=== PATIENT | male | born 1955 | race Two or more races ===

== ENCOUNTER 2023-07-09 09:35 | Inpatient (IN) | payer OTHER, MEDICAID ==
[2023-07-09] VITALS (15 sets, daily range): BP systolic 76–103; BP diastolic 17–57; PULSE 83–192; RESP 12–24; TEMP 98.2–99.7; O2SAT 96–100
[~2023-07-09] VITALS: Ht 175.3 cm; Wt 84.2 kg
[2023-07-09] MEDS ORDERED: SODIUM CHLORIDE 0.9% 1,000 ML IVB ONE ×2 (11:30)
[2023-07-09 12:07] LABS: Basophils # (auto) 0 10 ^3/uL (0-0.2); Basophils % (auto) 0.3 % (0.0-2.0); Eosinophils # (auto) 0 10 ^3/uL (0-0.8); Lymphocytes # (auto) 0.7 10 ^3/uL (0.4-5.4); Monocytes # (auto) 0.2 10 ^3/uL (0-1.3)
[2023-07-09 12:09] LABS: Eosinophils % (auto) 0.3 % (0.0-7.0); Mean Corpuscular Hemoglobin 29.3 pg (28.0-32.0); Mean Corpuscular Hgb Conc. 27.9 g/dL (32.0-36.0); Monocytes % (auto) 4.7 % (0.0-12.0); Neutrophils # (auto) 3.5 10 ^3/uL (1.6-8.6); Neutrophils % (auto) 78.7 % (37.0-80.0); Nucleated Red Blood Cells % 0.3 %; Red Blood Cells 1.14 10^6/uL (4.5-5.90); Red Cell Distribution Width 17.7 % (11.8-14.3); White Blood Cell 4.4 10^3/uL (4.4-10.8)
[2023-07-09 12:18] LABS: Hemoglobin 3.4 g/dL (13.5-17.5)
[2023-07-09 12:22] LABS: Alanine Aminotransferase 25 U/L (7-40); Albumin 1.9 g/dL (3.2-4.8); Alkaline Phosphatase 24 U/L (46-116); Aspartate Aminotransferase 49 U/L (13-40); BUN/Creatinine Ratio 15.5 (10.0-20.0); Blood Alcohol < 3.0 mg/dL (<10); Blood Urea Nitrogen 63 mg/dL (9-23); Chloride 122 mmol/L (98-107); INR 1.62 (0.9-1.15); Partial Thromboplastin Time 37.7 SEC (24.5-34.5); Potassium 3.2 mmol/L (3.5-5.1); Prothrombin Time 16.5 sec (9.3-11.8); Sodium 147 mmol/L (136-145)
[2023-07-09 12:23] LABS: Bilirubin, Total 0.3 mg/dL (0.2-1.0); Total Protein 2.6 g/dL (5.7-8.2)
[2023-07-09 12:33] LABS: Glucose 179 mg/dL (74-106)
[2023-07-09 12:48] LABS: Lactic Acid w/Reflex 7.3 mmol/L (0.4-2.0)
[2023-07-09 12:50] LABS: Carbon Dioxide < 10 mmol/L (20-30)
[2023-07-09 12:51] LABS: Calcium 4.4 mg/dL (8.5-10.1)
[2023-07-09] MEDS: TRANEXAMIC ACID 1,000 MG in SODIUM CHL 0.9% 100 ML IV ONE (12:53)
[2023-07-09 12:54] LABS: Lipase 26 U/L (12-53)
[2023-07-09 12:56] LABS: % Iron Saturation 32.1 % (20-55)
[2023-07-09] MEDS ORDERED: VANCOMYCIN PER PHARMACY 0 MG IV SCH ×2 (13:00→17:15)
[2023-07-09] MEDS: ALBUMIN 25% 50 ML IV ONE (13:00)
[2023-07-09] MEDS: ONDANSETRON HCL 4 MG/2 ML VIAL IV ONE (13:02)
[2023-07-09] MEDS: PANTOPRAZOLE 40 MG/10 ML VIAL INJ IV ONE (13:04)
[2023-07-09] MEDS: PANTOPRAZOLE 40mg/50ML NS AE 50 ML IV ONE (13:05)
[2023-07-09 13:06] LABS: Folate (Folic Acid) 20.87 ng/mL (>5.38)
[2023-07-09] MEDS ORDERED: ETOMIDATE (2MG/ML) 20ML VIAL IV ONE (13:15)
[2023-07-09 13:27] LABS: Base Excess -18.8 mmol/L (-2.0-2.0)
[2023-07-09] MEDS: ETOMIDATE (2MG/ML) 20ML VIAL IV ONE (13:37)
[2023-07-09] MEDS: SUCCINYLCHOLINE CHLORIDE 20 MG/ML 10ML VIAL IV ONE (13:37)
[2023-07-09] MEDS: fentaNYL Drip 2500mCg/250mlNS 250 ML IV SCH (13:40)
[2023-07-09] MEDS: fentaNYL CITRATE 100 MCG/2 ML VL IM ONE (13:44)
[2023-07-09] MEDS: fentaNYL CITRATE 100 MCG/2 ML VL IV ONE ×2 (13:44→13:45)
[2023-07-09] MEDS: ROCURONIUM 10MG/ML 10ML VIAL IV ONE ×2 (14:02→17:34)
[2023-07-09] MEDS: SODIUM CHLORIDE 0.9% 1,000 ML IV ONE (14:05)
[2023-07-09] MEDS: NOREPINEPHRINE 8 MG/250ML KIT 250 ML IV SCH ×2 (14:10→19:39)
[2023-07-09] MEDS: CALCIUM GLUC 1,000mg/50ml-NS 50 ML IV ONE (15:02)
[2023-07-09 15:27] LABS: Urine Bacteria None Seen /hpf (None Seen)
[2023-07-09 15:32] LABS: Urine Amorphous Crystal FEW /hpf (None Seen); Urine Blood Negative /uL (Negative); Urine Clarity Clear (Clear); Urine Color Light-Yellow (Yellow); Urine Protein, UAD TRACE (Negative); Urine Specific Gravity 1.015 (1.001-1.035); Urine Urobilinogen Normal (Negative); Urine WBC 1 /hpf (0 - 3)
[2023-07-09 15:32] LABS: Base Excess -14.9 mmol/L (-2.0-2.0)
[2023-07-09] MEDS: VANCOMYCIN 1GM/200ML 200 ML IV ONE (15:42)
[2023-07-09 15:45] LABS: Amphetamine Screen, Urine Neg (NEGATIVE); Barbiturate Scree,Urine Neg (NEGATIVE); Benzodiazephine Screen, Urine Neg (NEGATIVE); Cannabinoid Screen, Urine Neg (NEGATIVE); Cocaine Screen, Urine Neg (NEGATIVE); Opiate Scree,Urine Neg (NEGATIVE); Phencyclidine Screen, Urine Neg (NEGATIVE)
[2023-07-09] MEDS: AMIODARONE BOLUS KIT 100 ML IV ONE (16:30)
[2023-07-09] MEDS: POTASSIUM CHLORIDE IV ONE (16:37)
[2023-07-09] MEDS: SODIUM CHL 0.9% IV ONE (16:37)
[2023-07-09] MEDS: LIDOCAINE 1% IV ONE (16:37)
[2023-07-09] MEDS: ALBUMIN 5% 50 ML IV ONE (17:11)
[2023-07-09] MEDS ORDERED: DEXTROSE (50%) 50ML SYRG IV PRN (17:15)
[2023-07-09] MEDS ORDERED: metroNIDAZOLE 500MG/100ML 100 ML IV ONE (17:15)
[2023-07-09] MEDS: PIPERACILLIN-TAZOB 3.375GM 100 ML IV ONE (17:22)
[2023-07-09] MEDS: SODIUM BICARB 8.4% 50Meq/50ml SYR Vial IV ONE (17:22)
[2023-07-09] MEDS: AMIODARONE HCL (50 MG/ ML) 3 ML VIAL IV ONE (17:53)
[2023-07-09 18:07] LABS: Triglycerides 140 mg/dL (< 150)
[2023-07-09 18:08] LABS: LDL Cholesterol 30 mg/dL (< 100)
[2023-07-09 18:09] LABS: Cholesterol 71 mg/dL (< 200); HDL Cholesterol 18 mg/dL (40-59)
[2023-07-09] MEDS ORDERED: VASOPRESSIN 40 UNITS in D5W 5% 198 ML IV SCH (18:15)
[2023-07-09] MEDS: PANTOPRAZOLE 40mg/50ML NS AE 50 ML IV SCH (18:18)
[2023-07-09] MEDS: metroNIDAZOLE 500MG/100ML 100 ML IV SCH (18:19)
[2023-07-09 18:24] LABS: Lactic Acid w/Reflex 12.8 mmol/L (0.4-2.0)
[2023-07-09] MEDS: MAGNESIUM SULFATE 1GM/100ML 100 ML IV SCH (18:26)
[2023-07-09] MEDS: VASOPRESSIN 20 UNITS in SODIUM CHL 0.9% 99 ML IV SCH (18:28)
[2023-07-09 18:46] LABS: Base Excess -18.7 mmol/L (-2.0-2.0)
[2023-07-09] MEDS: ACCU-CHEK COMFORT CURVE STRIP VI SCH (18:47)
[2023-07-09] MEDS: InsuLIN REG 1unit/0.01ml Soln (100units/ml) SC SCH (18:49)
[2023-07-09] MEDS: PHENYLEPHRINE IV 250 ML IV SCH (18:53)
[2023-07-09] MEDS: SOD CHL 0.45% IV SCH (20:18)
[2023-07-09] MEDS: SODIUM BICARB IV SCH (20:18)
[2023-07-09] MEDS: MIDAZOLAM DRIP 50 mg/50mL 50 ML IV ONE (22:45)
[2023-07-09] MEDS: MIDAZOLAM DRIP 50 mg/50mL 50 ML IV SCH (23:17)
[2023-07-09] MEDS: AMIODARONE 450mg/250ml AE 250 ML IV SCH (23:27)
[2023-07-10] VITALS (93 sets, daily range): BP systolic 78–113; BP diastolic 27–49; PULSE 31–99; RESP 15–29; TEMP 96.4–100.8; O2SAT 18–100
[2023-07-10 00:26] LABS: Base Excess -15.6 mmol/L (-2.0-2.0)
[2023-07-10] MEDS: ACETAMINOPHEN 650 MG RECT SUPP PR PRN (01:12)
[2023-07-10 01:15] LABS: Hematocrit 22.5 % (41.0-53.0)
[2023-07-10 01:24] LABS: Hemoglobin 6.5 g/dL (13.5-17.5)
[2023-07-10 02:44] LABS: Hematocrit 22.2 % (41.0-53.0); Mean Corpuscular Hemoglobin 29.4 pg (28.0-32.0); Mean Corpuscular Hgb Conc. 30.4 g/dL (32.0-36.0); Mean Corpuscular Volume 96.7 fL (80.0-100.0); Red Cell Distribution Width 16.5 % (11.8-14.3)
[2023-07-10 02:46] LABS: White Blood Cell 1.9 10^3/uL (4.4-10.8)
[2023-07-10 02:47] LABS: Basophils % (manual) 0 (0.0-2.0); Blast Cells 0; Eosinophils % (manual) 0 (0-7); Hemoglobin 6.8 g/dL (13.5-17.5); Metamyelocytes % 0; Myelocytes % 0; Promyelocytes % 0; Reactive Lymphocytes 0
[2023-07-10 02:59] LABS: Alanine Aminotransferase 547 U/L (7-40); Albumin 2.6 g/dL (3.2-4.8); Alkaline Phosphatase 43 U/L (46-116); Anion Gap 19 (5-15); BUN/Creatinine Ratio 12.7 (10.0-20.0); Calcium 7.9 mg/dL (8.7-10.4); Carbon Dioxide 15 mmol/L (20-30); Chloride 106 mmol/L (98-107); Glucose 172 mg/dL (74-106); Magnesium 2.2 mg/dL (1.6-2.6); Sodium 140 mmol/L (136-145)
[2023-07-10 03:00] LABS: Bilirubin, Total 1.8 mg/dL (0.2-1.0); Total Protein 4.1 g/dL (5.7-8.2)
[2023-07-10 03:10] LABS: Aspartate Aminotransferase 1451 U/L (13-40)
[2023-07-10 03:11] LABS: Potassium 5.2 mmol/L (3.5-5.1)
[2023-07-10 03:13] LABS: INR 1.64 (0.9-1.15); Prothrombin Time 16.7 sec (9.3-11.8)
[2023-07-10 03:14] LABS: Blood Urea Nitrogen 103 mg/dL (9-23)
[2023-07-10] MEDS: SODIUM BICARB 8.4% 50Meq/50ml SYR Vial IV ONE ×3 (03:49→17:33)
[2023-07-10] MEDS: EPINEPHrine HCL 250 ML IV SCH (04:15)
[2023-07-10 05:30] LABS: Band Neutrophils % (manual) 11; Lymphocytes % (manual) 26 (10.0-50.0); Monocytes % (manual) 7 (0-12)
[2023-07-10 05:31] LABS: Platelet Estimate Adequate
[2023-07-10] MEDS: PIPERACILLIN-TAZOB 3.375GM 100 ML IV SCH (06:00)
[2023-07-10 07:15] LABS: Base Excess -18.8 mmol/L (-2.0-2.0)
[2023-07-10] MEDS: PHENYLEPHRINE INJ 80 MG in SODIUM CHL 0.9% 242 ML IV SCH (08:15)
[2023-07-10] MEDS: EPINEPHrine HCL INJECTION 16 MG in D5W 5% 234 ML IV SCH (08:43)
[2023-07-10] MEDS: NOREPINEPHRINE BITARTRATE 32 MG in SODIUM CHL 0.9% 218 ML IV SCH (08:43)
[2023-07-10] MEDS ORDERED: DEXTROSE (50%) 50ML SYRG IV PRN (09:45)
[2023-07-10] MEDS: VANCOMYCIN 1GM/200ML 200 ML IV ONE (10:38)
[2023-07-10] MEDS: CEFEPIME 1GM/ 50ML 50 ML IV SCH (10:55)
[2023-07-10] MEDS: SODIUM ZIRCONIUM CYCL 10 GM PAK GT ONE (10:55)
[2023-07-10] MEDS: ACCU-CHEK COMFORT CURVE STRIP VI SCH (11:33)
[2023-07-10] MEDS: InsuLIN REG 1unit/0.01ml Soln (100units/ml) SC SCH (11:33)
[2023-07-10] MEDS: SODIUM BICARB IV SCH (12:00)
[2023-07-10] MEDS: BUMETANIDE INJECTION 12.5 MG in GIVE UN-DILUTED 0 ML IV SCH (12:00)
[2023-07-10] MEDS: SOD CHL 0.45% IV SCH (12:00)
[2023-07-10 14:08] LABS: Hemoglobin 8.2 g/dL (13.5-17.5)
[2023-07-10 14:10] LABS: Hematocrit 27.4 % (41.0-53.0)
[2023-07-10] MEDS: DOPamine 3200MCG/ML 250 ML IV SCH (14:40)
[2023-07-10 15:13] LABS: Alanine Aminotransferase 806 U/L (7-40); Albumin 2.4 g/dL (3.2-4.8); Alkaline Phosphatase 53 U/L (46-116); Anion Gap 27 (5-15); Calcium 7.4 mg/dL (8.7-10.4); Carbon Dioxide 11 mmol/L (20-30); Chloride 104 mmol/L (98-107); Glucose 120 mg/dL (74-106); Magnesium 2.4 mg/dL (1.6-2.6); Sodium 142 mmol/L (136-145)
[2023-07-10 15:14] LABS: Total Protein 4.1 g/dL (5.7-8.2)
[2023-07-10 15:25] LABS: Aspartate Aminotransferase 2939 U/L (13-40)
[2023-07-10 15:42] LABS: Blood Urea Nitrogen 101 mg/dL (9-23); Potassium 6.1 mmol/L (3.5-5.1)
[2023-07-10 16:43] LABS: Base Excess -23.5 mmol/L (-2.0-2.0)
[2023-07-10] MEDS: SODIUM BICARB 8.4% 50Meq/50ml SYR INJ IV ONE (17:00)
[2023-07-10] MEDS: InsuLIN REG 1unit/0.01ml Soln (100units/ml) IV ONE (17:00)
[2023-07-10] MEDS: SODIUM ZIRCONIUM CYCL 10 GM PAK PO ONE (17:33)
[2023-07-10] MEDS: DEXTROSE (50%) 50ML SYRG IV ONE (17:34)
[2023-07-10] MEDS: CALCIUM GLUC 1,000mg/50ml-NS 50 ML IV ONE (17:34)
[2023-07-10] MEDS: ALBUTEROL SULF 2.5 MG/0.5ML(0.5%) NEB SOLN NEB ONE (18:15)
[2023-07-10 19:01] LABS: Lactic Acid w/Reflex > 15.5 mmol/L (0.4-2.0)
[2023-07-10] MEDS ORDERED: ASCO500C49 PO (19:20)
[2023-07-10] MEDS ORDERED: POLY335015 PO (19:20)
[2023-07-10] MEDS ORDERED: ATOR80TA PO (19:20)
[2023-07-10] MEDS ORDERED: CARV12.544 PO (19:20)
[2023-07-10] MEDS ORDERED: GLIP5TAB21 PO (19:20)
[2023-07-10] MEDS ORDERED: APIX5TAB PO (19:20)
[2023-07-10] MEDS ORDERED: BENZ100C97 PO (19:20)
[2023-07-10] MEDS ORDERED: SEVE800T8 PO (19:20)
[2023-07-10] MEDS ORDERED: PANT40TA2 PO (19:20)
[2023-07-10] MEDS ORDERED: FERR325T24 PO (19:20)
[2023-07-10] MEDS ORDERED: LACT10PA2 PO (19:20)
== END 2023-07-10 21:09 | DRG 871 ==
LOC: EDBD 09:35 → ER 09:35 → ICU WEST 17:29 → TELE 17:29 → ICU WEST 07-10 01:50
PROVIDERS: ADMIT Internal Medicine; ATTEND Internal Medicine
PROC: 0BH17EZ Insertion of Endotracheal Airway into Trachea, Via Natural or Artificial Opening (ICD-10-PCS; principal; 2023-07-09)
PROC: 5A1945Z Respiratory Ventilation, 24-96 Consecutive Hours (ICD-10-PCS; 2023-07-09)
PROC: 06HY33Z Insertion of Infusion Device into Lower Vein, Percutaneous Approach (ICD-10-PCS; 2023-07-09)
PROC: 5A12012 Performance of Cardiac Output, Single, Manual (ICD-10-PCS; 2023-07-09)
PROC: 30233K1 Transfusion of Nonautologous Frozen Plasma into Peripheral Vein, Percutaneous Approach (ICD-10-PCS; 2023-07-09)
PROC: 30233N1 Transfusion of Nonautologous Red Blood Cells into Peripheral Vein, Percutaneous Approach (ICD-10-PCS; 2023-07-09)
DX: A41.9 Sepsis, unspecified organism (principal); E43 Unspecified severe protein-calorie malnutrition; G93.41 Metabolic encephalopathy; N18.6 End stage renal disease; I50.43 Acute on chronic combined systolic (congestive) and diastolic (congestive) heart failure; K55.059 Acute (reversible) ischemia of intestine, part and extent unspecified; K72.00 Acute and subacute hepatic failure without coma; J96.01 Acute respiratory failure with hypoxia; I21.A1 Myocardial infarction type 2; J15.69 Pneumonia due to other Gram-negative bacteria; R65.21 Severe sepsis with septic shock; Z99.11 Dependence on respirator [ventilator] status; D62 Acute posthemorrhagic anemia; I47.20 Ventricular tachycardia, unspecified; E87.1 Hypo-osmolality and hyponatremia; D68.9 Coagulation defect, unspecified; N17.9 Acute kidney failure, unspecified; Z66 Do not resuscitate; I25.10 Atherosclerotic heart disease of native coronary artery without angina pectoris; E11.22 Type 2 diabetes mellitus with diabetic chronic kidney disease; E87.6 Hypokalemia; I46.9 Cardiac arrest, cause unspecified; D69.6 Thrombocytopenia, unspecified; E83.51 Hypocalcemia; E87.5 Hyperkalemia; I48.0 Paroxysmal atrial fibrillation; D63.1 Anemia in chronic kidney disease; E83.39 Other disorders of phosphorus metabolism; E83.42 Hypomagnesemia; Z99.2 Dependence on renal dialysis; Z98.61 Coronary angioplasty status; Z95.1 Presence of aortocoronary bypass graft; Z89.511 Acquired absence of right leg below knee; Z79.01 Long term (current) use of anticoagulants; Z68.27 Body mass index [BMI] 27.0-27.9, adult; Z79.4 Long term (current) use of insulin
CPT/HCPCS: 31500; 36415; 36556; 36600; 71045; 74176; 80053; 80061; 80202; 80307; 80320; 81001; 82140; 82248; 82607; 82728; 82746; 82805; 82962; 83540; 83550; 83605; 83615; 83690; 83735; 83880; 84100; 84443; 84484; 85007; 85014; 85018; 85025; 85027; 85045; 85610; 85730; 86850; 86900; 86901; 86920; 87040; 87070; 87077; 87081; 87086; 87205; 93005; 93306; 94002; 94003; 94640; C9113; G0378; J0171; J0330; J1265; J1815; J2001; J2250; J2405; J2543; J3490; J7060